=== PATIENT | female | born 1980 | race American Indian/Alaskan Native ===

== ENCOUNTER 2021-01-30 14:00 | Emergency (ER) | payer MEDICAID ==
[2021-01-30 14:07] VITALS: BP 132/83
--- NOTE | 2021-01-30 15:41 | Emergency Department Report ---
ED Dizziness HPI - General Chief Complaint: Dizziness Stated Complaint: DIZZY,LIGHTHEADED Time Seen by Provider: 01/30/21 15:13 Source: patient Mode of arrival: Ambulatory Limitations: No Limitations - History of Present Illness Initial Comments: The patient was evaluated in the emergency department for symptoms described in the history of present illness. He/she was evaluated in the context of the global COVID-19 pandemic, which necessitated consideration that the patient might be at risk for infection with the virus that causes COVID-19. Institu tional protocols and algorithms that pertain to the evaluation of patients at risk for COVID-19 are in a state of rapid change based on information released by regulatory bodies including the CDC and federal and state organizations. These policies and algorithms were followed during the patient's care in the emergency department. Please note that these policies, procedures and recommendations changed on a rapid basis. 40-year-old -Citizen Of [place] female presents to the emergency room complaining of dizziness for the last 4 to 5 days. Patient states that she was seen at urgent care this morning and they recommended for her to be evaluated in the ER. Patient reports no headache no nausea no vomiting no change of vision. She states that her dizziness is worse when she eats. She has tried [id number] Dramamine. She does admit to having nasal drainage and postnasal drainage 2 weeks ago. She denies any weakness no head injury states she has no problem ambulating. She did have her blood sugar checked at urgent care and it looks fine. She denies any trauma. Her last menstrual period was a hysterectomy in January 2020. Complaint: dizziness Timing: constant Description: "room spinning", off-balance History of Same: No History of Trauma: No Severity: moderate Improves With: nothing Worsens With: other (Eating) Associated Symptoms: denies other symptoms - Related Data Previous Rx's Medication Instructions Recorded Last Taken Type Meclizine [Antivert] 25 mg PO TID PRN #21 tablet 01/30/21 Unknown Rx Allergies Allergy/AdvReac Type Severity Reaction Status Date / Time No Known Allergies Allergy Unverified 01/30/21 14:04 ED Review of Systems ROS: Stated complaint: DIZZY,LIGHTHEADED Other details as noted in HPI Comment: All other systems reviewed and negative ED Past Medical Hx - Past Medical History Previous Medical History?: No - Surgical History Additional Surgical History: hysto/ d&c - Medications Home Medications: Home Medications Medication Instructions Recorded Confirmed Last Taken Type Meclizine [Antivert] 25 mg PO TID PRN #21 tablet 01/30/21 Unknown Rx ED Physical Exam - General Limitations: No Limitations General appearance: alert, in no apparent distress - Head Head exam: Present: atraumatic, normocephalic - Eye Eye exam: Present: normal appearance - ENT ENT exam: Present: mucous membranes moist - Neck Neck exam: Present: normal inspection - Respiratory Respiratory exam: Present: normal lung sounds bilaterally. Absent: respiratory distress - Cardiovascular Cardiovascular Exam: Present: regular rate, normal rhythm. Absent: systolic murmur, diastolic murmur, rubs, gallop - GI/Abdominal GI/Abdominal exam: Present: soft, normal bowel sounds - Extremities Exam Extremities exam: Present: normal inspection - Back Exam Back exam: Present: normal inspection - Neurological Exam Neurological exam: Present: alert, oriented X3, normal gait - Expanded Neurological Exam Expanded Cranial nerves: EOM's Intact: Normal, Gag Reflex: Normal, Tongue Deviation: Normal, Nystagmus: Normal, Facial Sensation: Normal, Facial Palsy with Forehead Movement: Normal, Facial Palsy without Forehead Movement: Normal Cerebellar function: Finger to Nose: Normal, Heel to Arevalo: Normal, Romberg: Normal Upper motor neuron: Brayan Neglect: Normal, Pronator Drift: Normal, Babinski Sign: Normal, Sensory Extinction: Normal Sensory exam: Upper Extremity Light Touch: Normal, Upper Extremity Pin Prick: Normal, Upper Extremity Temperature: Normal, UE 2 Point Discrimination: Normal, Lower Extremity Light Touch: Normal, Lower Extremity Pin Prick: Normal, Lower Extremity Temperature: Normal, LE 2 Point Discrimination: Normal Motor strength exam: RUE: 5, LUE: 5, RLE: 5, LLE: 5 Best Eye Response (Neotsu): (4) open spontaneously Best Motor Response (Fredis): (6) obeys commands Best Verbal Response (Neotsu): (5) oriented Neotsu Total: 15 - Psychiatric Psychiatric exam: Present: normal affect, normal mood - Skin Skin exam: Present: warm, dry, intact, normal color. Absent: rash ED Course Vital Signs 01/30/21 14:05 Temperature 97.8 F Pulse Rate 74 Respiratory 18 Rate Blood Pressure 132/83 O2 Sat by Pulse 97 Oximetry ED Medical Decision Making - Medical Decision Making 40-year-old -Citizen Of [place] female presents to the emergency room complaining of dizziness for the last 4 to 5 days. Patient states that she was seen at urgent care this morning and they recommended for her to be evaluated in the ER. Patient reports no headache no nausea no vomiting no change of vision. She states that her dizziness is worse when she eats. She has tried [id number] Dramamine. She does admit to having nasal drainage and postnasal drainage 2 weeks ago. She denies any weakness no head injury states she has no problem ambulating. She did have her blood sugar checked at urgent care and it looks fine. She denies any trauma. Her last menstrual period was a hysterectomy in January 2020. Patient appears to have vertigo. As patient has URI symptoms close to 2 weeks prior prior to her dizziness and spinning of the room has started. Patient has no other symptoms no headache no nausea no vomiting no weakness full neuro logical examination intact. I discussed with patient we will try her on Antivert and to follow-up with ear nose and throat. Patient verbalized un derstanding. Critical care attestation.: If time is entered above; I have spent that time in minutes in the direct care of this critically ill patient, excluding procedure time. ED Disposition Clinical Impression: Vertigo Disposition: 01 HOME / SELF CARE / HOMELESS Is pt being admited?: No Does the pt Need Aspirin: No Condition: Stable Instructions: How to Perform the Thom Maneuver, Dizziness, [id number] Additional Instructions: Please take medication as prescribed. Please try doing the maneuvers at I had demonstrated to you. If your symptoms worsen or new symptoms arise please follow-up in the emergency room immediately. Prescriptions: Meclizine [Antivert] 25 mg PO TID PRN #21 tablet PRN Reason: Vertigo Referrals: SAULO CRESPO FNP [Referring] - 3-5 Days BETO DIAZ MD [Referring] - 3-5 Days KANDI MASON MD [Staff Physician] - 3-5 Days Forms: Work/School Release Form(ED) Time of Disposition: 15:42
== END 2021-01-30 16:10 | disposition home or self-care (01) ==
LOC: ED 14:00
DX: R42 Dizziness and giddiness (principal)
CPT/HCPCS: 99281